=== PATIENT | female | born 1945 | race Hispanic/Latino ===

== ENCOUNTER 2017-02-06 07:14 | Day surgery (SDC) | payer MEDICARE ==
[~2017-02-06 07:14] MED LIST: TETRACAINE 0.5% OS PRN
[2017-02-06] MEDS: MYDRIACYL OS SCH ×3 (07:55→08:05)
[2017-02-06] MEDS: VIGAMOX OS SCH ×3 (07:55→08:05)
[2017-02-06] MEDS: AK-Dilate OS SCH ×3 (07:55→08:05)
--- NOTE | 2017-02-06 07:55 | Anesthesia Consultation ---
Anesthesia Consult and Med Hx Date of service: 02/06/17 - Airway Anesthetic Teeth Evaluation: Dentures, Edentulous ROM Head & Neck: Adequate Mental/Hyoid Distance: Adequate Mallampati Class: Class II Intubation Access Assessment: Probably Good - Pulmonary Exam CTA: Yes - Cardiac Exam Cardiac Exam: RRR - Pre-Operative Health Status ASA Pre-Surgery Classification: ASA3 Proposed Anesthetic Plan: MAC - Pulmonary Hx Smoking: No Hx Asthma: Yes (took symbicort this morning) Hx Sleep Apnea: No - Cardiovascular System Hx Hypertension: Yes (FOR 15 YRS) Hx Coronary Artery Disease: Yes Hx Heart Attack/AMI: Yes (IN 2001) Hx Percutaneous Transluminal Coronary Angioplasty (PTCA): Yes (STENT X 1) - Central Nervous System Hx Seizures: No CVA: No Hx Back Pain: Yes (COMPRESSED VERTEBRAE IN THORACIC AND LUMBAR SPINE) Hx Psychiatric Problems: No - Endocrine Hx Renal Disease: No Hx Cirrhosis: No Hx Liver Disease: No (HEPATITIS A CHILD) Hx Insulin Dependent Diabetes: No Hx Hyperthyroidism: No - Other Systems Hx Cancer: No Hx Obesity: Yes (BMI 31.2)
[2017-02-06] MEDS ORDERED: MYDRIACYL ONE (08:00)
--- NOTE | 2017-02-06 08:05 | Anesthesia Day of Surgery ---
Anesthesia Day of Surgery - Day of Surgery Patient Examined: Yes Patient H&P Reviewed: Yes Patient is NPO: Yes
[2017-02-06] MEDS ORDERED: VERSED ONE (08:28)
[2017-02-06] MEDS ORDERED: SUBLIMAZE ONE (08:28)
[2017-02-06] MEDS ORDERED: WATER FOR IRRIG STERILE IR ONE (09:16)
--- NOTE | 2017-02-06 09:24 | Operative Report ---
Operative Report Operative Report: PATIENT'S NAME: DATE OF : DATE OF SURGERY: 02/06/2017 PREOPERATIVE DIAGNOSIS: Cataract left eye POSTOPERATIVE DIAGNOSIS: Same OPERATIVE PROCEDURE: Phacoemulsification with intraocular lens implantation, left eye SURGEON: Sunni Camarena M.D. [employer]IC [employer]ER[employer] SURGEON: Zion Lens: AO60 23.5D ANESTHESIA: Monitored anesthesia care in combination with topical and intracameral anesthesia because of the established specific risk of reflux, arrhythmias, or anxiety attacks associated with ocular manipulation, as well as the difficulty of the enterprise resource planner to manage such potentially catastrophic events while simultaneously attempting to complete the surgical procedure and was deemed necessary for the patient's safety to have an Market Research Interviewer present during the procedure whenever possible. An Market Research Interviewer was utilized to regulate the intravenous sedation of the patient so the patient was cooperative yet not asleep in order for the patient to successfully maintain fixation of the eye on the operating light of the microscope. COMPLICATIONS: No surgical complications No blood loss. ALLERGIES: Phenytoin PROGNOSIS: Excellent INDICATIONS FOR SURGERY: The patient is undergoing surgery in the hopes of eliminating or improving these visual difficulties. PROCEDURE: After arriving at the surgery center, the patient was given topical anesthetic and dilating drops, as noted in the record. The patient was then taken into the operating room and given more anesthetic drops. The eyelids , lashes, and lid margins were scrubbed with Betadine solution, and the patient was draped. The Nurse Market Research Interviewer administered IV sedation and monitored the patient during the procedure. The eye was then fixated with a 0.12, and a stab incision was made in the peripheral clear cornea into the anterior chamber. This was made on my left side. Viscoelastic was next used to fill the anterior chamber. The eye was once again fixated with the 0.12 forceps and a keratome was used make an incision in clear cornea peripherally on my right hand side temporally. The capsule forceps were used to open the central anterior capsule and then make a continuous round capsulotomy. Hydrodissection was carried out utilizing a cannula and balanced salt solution to delineate the cortical material from the capsule and the nucleus from the cortical material. The phaco tip was introduced into the eye and used to remove the anterior cortical material in the area of the capsulotomy. Then the phaco tip was buried into the nucleus, and a chopping instrument was introduced into the eye and used to provide countertraction in the nucleus between this instrument and the phaco tip fracturing the nucleus. This procedure was repeated multiple times, providing multiple small segments of the lens, and then the phaco tip was used to remove each of these segments. An I/A tip was then used to remove the remaining cortex. The anterior chamber was refilled with viscoelastic. An one-piece, acrylic intraocular lens was then placed into an inserting cartridge. The tip of the inserting cartridge was introduced into the keratome incision and into the anterior chamber. The implant was gently advanced through the cartridge and into the eye, where it unfolded, and both haptics were placed in the capsular bag, where it centered nicely and appeared to be well fixated. After placement of the intraocular lens, the I~and~A handpiece was placed back into the eye and used to remove the viscoelastic, including viscoelastic that was behind the optic of the intraocular lens. The anterior chamber was then filled with balanced salt solution, and hydration of the wound was used to cause swelling of the wound and more appropriate watertight closure. When the wound was found to be firm, the patient was asked to comment on how bright the light was. If there was no light perception at all or if the light was substantially dimmer than during the rest of the surgery, the amount of fluid in the eye was decompressed to lower the intraocular pressure until the patient could see the bright light again. This was done to avoid any damage or decreased blood flow to the optic nerve. MEDICATIONS APPLIED AT END OF SURGERY: One drop of Pred Forte and Vigamox The patient was given a shield to wear at night and was instructed not to rub or push on the eye. DISCHARGE SUMMARY: The patient was released in stable condition. The patient and those with the patient were given a written sheet of postoperative instructions and counseling on any abnormal laboratory studies. The patient is to see us tomorrow for follow-up in the office and is to call immediately for any difficulties. Sunni Camarena M.D. Date
--- NOTE | 2017-02-06 09:26 | Short Stay Summary ---
Short Stay Documentation Date of service: 02/06/17 - History H&P: obtained from office - Allergies and Medications Current Medications: Allergies phenytoin sodium [From Dilantin] Allergy (Verified 02/06/17 08:20) Unknown phenytoin sodium extended [From Dilantin] Allergy (Verified 02/06/17 08:21) Unknown PT STATES SHE HAS NEVER TAKEN THIS MED BUT HER FATHER HAD A FATAL REACTION TO IT Home Medications Medication Instructions Recorded Confirmed Last Taken Type Aspirin [Aspirin TAB] 325 mg PO QDAY 01/30/17 01/30/17 02/05/17 History Budesoni/Formotero 160-4.5(Nf) 2 puff IH BID 01/30/17 01/30/17 02/06/17 04:00 History [Symbicort 160-4.5 (Nf)] Cyanocobalamin (Vitamin B-12) 1,000 mcg PO QDAY 01/30/17 01/30/17 02/05/17 History [B-12] Latanoprost 0.005% [Xalatan 0.005%] 1 drop OP QPM 01/30/17 01/30/17 02/05/17 History Losartan [Cozaar] 25 mg PO QDAY 01/30/17 01/30/17 02/05/17 History Oxybutynin [Ditropan] 5 mg PO QDAY 01/30/17 01/30/17 02/05/17 History Temazepam [Restoril] 15 mg PO QHS PRN 01/30/17 01/30/17 02/05/17 History Ubidecarenone [Coq-10] 100 mg PO QDAY 01/30/17 01/30/17 02/05/17 History Verapamil HCl [Verapamil] 80 mg PO QDAY 01/30/17 01/30/17 02/06/17 04:00 History amLODIPine [Norvasc] 10 mg PO DAILY 01/30/17 01/30/17 02/05/17 History Active Medications Moxifloxacin HCl (Vigamox) 1 drops OS Q5MIN RO[place] Stop: 02/08/17 06:01 Last Admin: 02/06/17 08:05 Dose: 1 drops Phenylephrine HCl (Ak-Dilate) 1 drops OS Q5MIN RO[place] Stop: 02/08/17 06:01 Last Admin: 02/06/17 08:05 Dose: 1 drops Prednisolone Acetate (Pred Forte 1%) 1 drops OS QID [place] Tetracaine HCl (Tetracaine 0.5%) 1 drops OS Q5M PRN PRN Reason: Analgesia Last Admin: 02/06/17 07:55 Dose: 1 drops Tropicamide (Mydriacyl) 1 drops OS Q5MIN ROBS[place] Stop: 02/08/17 06:01 Last Admin: 02/06/17 08:05 Dose: 1 drops - Brief post op/procedure progress note Date of procedure: 02/06/17 Pre-op diagnosis: cataract left eye Post-op diagnosis: same Procedure: Phacoemulsification with intraocular lens insertion left eye Anesthesia: MAC Surgeon: ELLIE BAXTER Estimated blood loss: none Pathology: none Condition: stable - Disposition Condition at discharge: Good Disposition: DISCHARGED TO HOME OR SELFCARE - Discharge Diagnoses (1) Cataract Status: Resolved Short Stay Discharge Plan Follow up with: LUCRECIA MACHADO [Other] - 7 Days
[2017-02-06] MEDS ORDERED: PRED FORTE 1% OS SCH (10:00)
[2017-02-06 10:20] VITALS: BP 157/70
--- NOTE | 2017-02-06 13:53 | Post Anesthesia Evaluation ---
- Post Anesthesia Evaluation Patient Participated: Yes Airway Patent: Yes Stable Respiratory Function: Yes Nausea/Vomiting: No Temp > 96.8F: Yes Pain Manageable: Yes Adequeate Hydration: Yes Anesthesia Complications: No Block Receding Appropriately: Not Applicable Patient on Ventilator: No
--- NOTE | 2017-02-06 21:47 | Admit Criteria Form ---
Admission Criteria Documentation: AMBULATORY SURGERY EXCEPTION CRITERIA Ambulatory Surgery Exception Criteria ( Place 'X' for any and all applicable criteria): Surgery or procedure performed on ambulatory basis may require inpatient stay for[A] ANY ONE of the following(1)(2)(3)(4)(5)(6)(7)(8)(9): [X] I. A preoperative situation, condition, or finding that warrants inpatient stay as indicated by ANY ONE of the following: [] a) Inpatient care needed because of severity of a disease or condition rather than the surgery (eg, severe cardiac or respiratory disease, severe infection) (15) (16 ) (17) (18) [] b) Emergent procedure (eg, angioplasty for acute ischemia)(19) [] c) Complex surgical approach or situation as indicated by ANY ONE of the following(3): [] i) Open approach needed instead of usual endoscopic, transcatheter, or other less invasive procedure [] ii) Difficult approach because of previous operation [] iii) Airway monitoring required after open neck procedures(20)(21) [] iv) Large mass requiring unusually extensive dissection [] v) Additional complicating feature requiring inpatient care (eg, drain management)(22(23): [X] d) Major surgery in a pt with high anesthetic risk as indicated by ANY ONE of the following (2)(3)(5)(7)(8): [X] i) ASA risk class III or higher (severe systemic disease impairing function) [D] [] ii) Advanced age (eg, older than 85 years)(14)(24) [] iii) Symptomatic heart failure(25) [] iv) Symptomatic asthma or COPD(8)(21) [] v) Morbid obesity with hemodynamic or respiratory problems(20)( 21)(26)(27) [] vi) Obstructive sleep apnea(20)(21) [] vii) Former premature infants who are younger than 60 weeks [] viii) High risk for severe postoperative abnormalities (eg, severe postoperative hypocalcemia after parathyroidectomy for severe hyperparathyroidism)(27)( 28) [] ix) Unstable angina(25) [] e) Drug-related risk requiring inpatient stay as indicated by ANY ONE of the following(5)(10)(14)(32)(33) [] i) Procedure requires discontinuing drugs or other therapy (eg , antiarrhythmic medication, antiseizure medication), which necessitates inpatient observation or treatment.(18)(31) [] ii) Major surgery and high risk drug use as indicated by ANY ONE of the following: [] 1) Active abuse of cocaine or similar drug [] 2) Monoamine oxidase inhibitor use [] 3) Other drug identified as posing risk [] f) Inadequate outpatient care situation as indicated by ANY ONE of the following(5)(10)(14)(32)(33) [] i) Patient lives remote from medical facility and procedure has urgent complication potential, and temporary nearby residence cannot be arranged [] ii) Patient will have postprocedure incapacitation and inadequate assistance at home, or alternative level of care cannot be arranged. [] iii) Patient will have long general anesthesia or procedure side effect resolution time, and competent person to stay with patient on first postoperative night at home or alternative level of care cannot be arranged. []iv) Other inadequate outpatient situation that cannot be handled by other means [] II. A perioperative event, condition, or finding that warrants inpatient stay as indicated by ANY ONE of the following (1)(2)(3): [] a) Inadequate physiologic recovery: cardiovascular, respiratory, or hemodynamic status not normal or near preoperative baseline(18) [] b) Hemodynamic instability [] c) Patient not alert with near normal or baseline mental status [] d) Temperature not normal or as expected and not appropriate for outpatient treatment of condition [] e) Ambulatory or appropriate activity level status not yet achieved post procedure [E](34)(35)(36) [] f) Operative site not appropriate (eg, unexpected or excessive drainage or bleeding) [] g) Postoperative effects not resolved or adequately managed (eg, significant pain or vomiting not appropriate for outpatient or next level of care)(10)(12) [] h) Complicating features requiring inpatient care as indicated by ANY ONE of the following(37): [] i) Severe complications of procedure (eg, bowel injury, airway compromise, vascular injury,severe hemorrhage) [] ii) Extensive (eg, dissection far beyond usual scope of procedure ) or prolonged (eg, 120 minutes beyond usual) surgery needed requiring inpatient postoperative care [] iii) Conversion to an open or complex procedure that requires inpatient care (eg, open vs laparoscopic cholecystectomy, abdominal vs vaginal hysterectomy)(38) [] iv) Comorbid condition or test result identified during or post procedure that requires inpatient care (7) [] v) Malignant hyperthermia(30) [] vi) Other complicating feature requiring inpatient care(22)(23) Inpatient stay may be needed until ALL of the following are present (1)(2)(3)(4) (5)(6)(10)(14)(33)(40): []a) Physiologic recovery: cardiovascular, respiratory, and hemodynamic status normal or near preoperative baseline []b) Hemodynamic stability []c) Patient alert, with near normal or baseline mental status []d) Temperature appropriate: patient afebrile or temperature appropriate for outpt treatment of condition []e) Activity level appropriate: ambulatory or appropriate activity level post procedure []f) Operative site appropriate as indicated by ALL of the following: []i) Site dry or with expected drainage []ii) Any blood noted is as expected for procedure. []g) Postoperative effects resolved or managed as indicated by ALL of the following: []i) Pain management appropriate for outpatient (or next level of) care(10) []ii) Minimal nausea and vomiting: if present, successfully treated with oral medication(12) []iii) Headache, dizziness, or drowsiness (if present) are mild. []h) Voiding status acceptable as indicated by ANY ONE of the following: []i) Voiding spontaneously []ii) No voiding but instructions given for follow-up in 6 to 8 hours []iii) Urinary catheter in place, and instructions given for follow-up []i) Complicating features requiring inpatient care manageable at a lower level of care(37) []j) Comorbid conditions manageable at a lower level of care(37) The original [facility] content created by [facility] has been revised. The portions of the content which have been revised are identified through the use of italic text or in bold, and [facility] [employer] has neither reviewed nor approved the modified material. All other unmodified content is copyright [facility]. Please see references footnoted in the original [facility] edition 2016 Admission Criteria Met: Yes
== END 2017-02-06 10:15 | disposition home or self-care (01) ==
LOC: OR 07:14
DX: H26.9 Unspecified cataract (principal); I10 Essential (primary) hypertension; J45.909 Unspecified asthma, uncomplicated; I25.10 Atherosclerotic heart disease of native coronary artery without angina pectoris; I25.2 Old myocardial infarction; E66.9 Obesity, unspecified; Z68.31 Body mass index [BMI] 31.0-31.9, adult; Z95.5 Presence of coronary angioplasty implant and graft
CPT/HCPCS: 66984; J2250; J3010; V2632

== ENCOUNTER 2017-02-13 05:55 | Day surgery (SDC) | payer MEDICARE ==
[~2017-02-13 05:55] MED LIST changes: +BSS ONE; +NACL 0.9% IR ONE; +TETRACAINE 0.5% ONE; -TETRACAINE 0.5% OS PRN
[2017-02-13] MEDS ORDERED: TETRACAINE 0.5% OD PRN (06:00)
[2017-02-13] MEDS ORDERED: NACL BACTERIOSTATIC INFILTRATI ONE (06:14)
[2017-02-13] MEDS: MYDRIACYL OD SCH ×3 (06:38→07:12)
[2017-02-13] MEDS: AK-Dilate OD SCH ×3 (06:38→07:12)
[2017-02-13] MEDS: VIGAMOX OD SCH ×3 (06:39→07:12)
[2017-02-13] MEDS ORDERED: VERSED ONE (06:59)
[2017-02-13] MEDS ORDERED: SUBLIMAZE ONE (06:59)
--- NOTE | 2017-02-13 07:00 | Anesthesia Day of Surgery ---
Anesthesia Day of Surgery - Day of Surgery Patient Examined: Yes Patient H&P Reviewed: Yes Patient is NPO: Yes Cardiac Clearance: Yes (cardiac note)
--- NOTE | 2017-02-13 07:02 | Anesthesia Consultation ---
Anesthesia Consult and Med Hx - Airway Anesthetic Teeth Evaluation: Dentures ROM Head & Neck: Adequate Mental/Hyoid Distance: Adequate Mallampati Class: Class II Intubation Access Assessment: Probably Good - Pulmonary Exam CTA: Yes - Cardiac Exam Cardiac Exam: RRR - Pre-Operative Health Status ASA Pre-Surgery Classification: ASA3 Proposed Anesthetic Plan: MAC - Pulmonary Hx Smoking: Yes Hx Asthma: Yes COPD: Yes - Cardiovascular System Hx Hypertension: Yes (x 15 yrs) Hx Coronary Artery Disease: Yes Hx Heart Attack/AMI: Yes (2001, EF 60%) Hx Percutaneous Transluminal Coronary Angioplasty (PTCA): Yes (STENT X 1) - Central Nervous System Hx Seizures: No CVA: No Hx Back Pain: Yes (Compressed vertebrae in thoracic & lumbar spine) Hx Psychiatric Problems: No - Endocrine Hx Renal Disease: No Hx Cirrhosis: No Hx Liver Disease: No (HEPATITIS A CHILD) Hx Insulin Dependent Diabetes: No Hx Hyperthyroidism: No - Other Systems Hx Cancer: No Hx Obesity: Yes (BMI 31.2) - Additional Comments Anesthesia Medical History Comments: NPO after MN. No prior anesthesia complications
[2017-02-13] MEDS ORDERED: PRED FORTE 1% ONE (07:57)
[2017-02-13] MEDS ORDERED: NACL 0.9% IR ONE (08:06)
--- NOTE | 2017-02-13 08:20 | Operative Report ---
Operative Report Operative Report: PATIENT'S NAME: DATE OF : DATE OF SURGERY: 02/13/2017 PREOPERATIVE DIAGNOSIS: Cataract right eye POSTOPERATIVE DIAGNOSIS: Same OPERATIVE PROCEDURE: Phacoemulsification with intraocular lens implantation, right eye SURGEON: Sunni Camarena M.D. FLIGHT DISPATCHER SURGEON: Zion Lens: AO60 23.0 D ANESTHESIA: Monitored anesthesia care in combination with topical and intracameral anesthesia because of the established specific risk of reflux, arrhythmias, or anxiety attacks associated with ocular manipulation, as well as the difficulty of the solar photovoltaic designer to manage such potentially catastrophic events while simultaneously attempting to complete the surgical procedure and was deemed necessary for the patient's safety to have an Broadcast Checker present during the procedure whenever possible. An Broadcast Checker was utilized to regulate the intravenous sedation of the patient so the patient was cooperative yet not asleep in order for the patient to successfully maintain fixation of the eye on the operating light of the microscope. COMPLICATIONS: No surgical complications No blood loss. ALLERGIES: Phenytoin PROGNOSIS: Excellent INDICATIONS FOR SURGERY: The patient is undergoing surgery in the hopes of eliminating or improving these visual difficulties. PROCEDURE: After arriving at the surgery center, the patient was given topical anesthetic and dilating drops, as noted in the record. The patient was then taken into the operating room and given more anesthetic drops. The eyelids , lashes, and lid margins were scrubbed with Betadine solution, and the patient was draped. The Nurse Broadcast Checker administered IV sedation and monitored the patient during the procedure. The eye was then fixated with a 0.12, and a stab incision was made in the peripheral clear cornea into the anterior chamber. This was made on my left side. Viscoelastic was next used to fill the anterior chamber. The eye was once again fixated with the 0.12 forceps and a keratome was used make an incision in clear cornea peripherally on my right hand side temporally. The capsule forceps were used to open the central anterior capsule and then make a continuous round capsulotomy. Hydrodissection was carried out utilizing a cannula and balanced salt solution to delineate the cortical material from the capsule and the nucleus from the cortical material. The phaco tip was introduced into the eye and used to remove the anterior cortical material in the area of the capsulotomy. Then the phaco tip was buried into the nucleus, and a chopping instrument was introduced into the eye and used to provide countertraction in the nucleus between this instrument and the phaco tip fracturing the nucleus. This procedure was repeated multiple times, providing multiple small segments of the lens, and then the phaco tip was used to remove each of these segments. An I/A tip was then used to remove the remaining cortex. The anterior chamber was refilled with viscoelastic. An one-piece, acrylic intraocular lens was then placed into an inserting cartridge. The tip of the inserting cartridge was introduced into the keratome incision and into the anterior chamber. The implant was gently advanced through the cartridge and into the eye, where it unfolded, and both haptics were placed in the capsular bag, where it centered nicely and appeared to be well fixated. After placement of the intraocular lens, the I~and~A handpiece was placed back into the eye and used to remove the viscoelastic, including viscoelastic that was behind the optic of the intraocular lens. The anterior chamber was then filled with balanced salt solution, and hydration of the wound was used to cause swelling of the wound and more appropriate watertight closure. When the wound was found to be firm, the patient was asked to comment on how bright the light was. If there was no light perception at all or if the light was substantially dimmer than during the rest of the surgery, the amount of fluid in the eye was decompressed to lower the intraocular pressure until the patient could see the bright light again. This was done to avoid any damage or decreased blood flow to the optic nerve. MEDICATIONS APPLIED AT END OF SURGERY: One drop of Pred Forte and Vigamox The patient was given a shield to wear at night and was instructed not to rub or push on the eye. DISCHARGE SUMMARY: The patient was released in stable condition. The patient and those with the patient were given a written sheet of postoperative instructions and counseling on any abnormal laboratory studies. The patient is to see us tomorrow for follow-up in the office and is to call immediately for any difficulties. Sunni Camarena M.D. Date
--- NOTE | 2017-02-13 08:21 | Short Stay Summary ---
Short Stay Documentation Date of service: 02/13/17 - History H&P: obtained from office - Allergies and Medications Current Medications: Allergies phenytoin sodium [From Dilantin] Allergy (Verified 02/12/17 09:22) Unknown phenytoin sodium extended [From Dilantin] Allergy (Verified 02/12/17 09:22) Unknown PT STATES SHE HAS NEVER TAKEN THIS MED BUT HER FATHER HAD A FATAL REACTION TO IT Home Medications Medication Instructions Recorded Confirmed Last Taken Type Aspirin [Aspirin TAB] 325 mg PO QDAY 01/30/17 02/12/17 02/12/17 History Budesoni/Formotero 160-4.5(Nf) 2 puff IH BID 01/30/17 02/12/17 02/12/17 History [Symbicort 160-4.5 (Nf)] Cyanocobalamin (Vitamin B-12) 1,000 mcg PO QDAY 01/30/17 02/12/17 02/12/17 History [B-12] Latanoprost 0.005% [Xalatan 0.005%] 1 drop OP QPM 01/30/17 02/12/17 02/12/17 History Losartan [Cozaar] 25 mg PO QDAY 01/30/17 02/12/17 02/12/17 History Oxybutynin [Ditropan] 5 mg PO QDAY 01/30/17 02/12/17 02/12/17 History Temazepam [Restoril] 15 mg PO QHS PRN 01/30/17 02/12/17 02/12/17 History Ubidecarenone [Coq-10] 100 mg PO QDAY 01/30/17 02/13/17 02/12/17 History Verapamil HCl [Verapamil] 80 mg PO QDAY 01/30/17 02/13/17 02/13/17 04:00 History amLODIPine [Norvasc] 10 mg PO DAILY 01/30/17 02/13/17 02/12/17 History Moxifloxacin HCl [Vigamox 0.5%] 1 drop OP QID 02/13/17 02/13/17 02/12/17 History Nepafenac [Ilevro 0.3%] 1 drop OP QDAY 02/13/17 02/13/17 02/12/17 History prednisoLONE ACETATE [Pred Forte] 1 drop OS QID 02/13/17 02/13/17 02/12/17 History Active Medications Moxifloxacin HCl (Vigamox) 1 drops OD Q5MIN [facility] Stop: 02/15/17 06:01 Last Admin: 02/13/17 07:12 Dose: 1 drops Phenylephrine HCl (Ak-Dilate) 1 drops OD Q5MIN [facility] Stop: 02/15/17 06:01 Last Admin: 02/13/17 07:12 Dose: 1 drops Prednisolone Acetate (Pred Forte 1%) 1 drops OD QID [facility] Tetracaine HCl (Tetracaine 0.5%) 1 drops OD Q5MIN PRN PRN Reason: Analgesia Last Admin: 02/13/17 06:38 Dose: 1 drops Tropicamide (Mydriacyl) 1 drops OD Q5MIN [facility] Stop: 02/15/17 06:01 Last Admin: 02/13/17 07:12 Dose: 1 drops - Brief post op/procedure progress note Date of procedure: 02/13/17 Pre-op diagnosis: CATARACT RIGHT EYE Post-op diagnosis: same Procedure: Phacoemulsification with intraocular lens insertion right eye Anesthesia: MAC Surgeon: ELLIE BAXTER Estimated blood loss: none Pathology: none Condition: stable - Disposition Condition at discharge: Good Disposition: DISCHARGED TO HOME OR SELFCARE - Discharge Diagnoses (1) Cataract Status: Resolved
[2017-02-13] MEDS ORDERED: PRED FORTE 1% OD SCH (09:00)
[2017-02-13 09:16] VITALS: BP 160/80
--- NOTE | 2017-02-14 01:46 | Admit Criteria Form ---
Admission Criteria Documentation: AMBULATORY SURGERY EXCEPTION CRITERIA Ambulatory Surgery Exception Criteria ( Place 'X' for any and all applicable criteria): Surgery or procedure performed on ambulatory basis may require inpatient stay for[A] ANY ONE of the following(1)(2)(3)(4)(5)(6)(7)(8)(9): [X] I. A preoperative situation, condition, or finding that warrants inpatient stay as indicated by ANY ONE of the following: [] a) Inpatient care needed because of severity of a disease or condition rather than the surgery (eg, severe cardiac or respiratory disease, severe infection) (15) (16 ) (17) (18) [] b) Emergent procedure (eg, angioplasty for acute ischemia)(19) [] c) Complex surgical approach or situation as indicated by ANY ONE of the following(3): [] i) Open approach needed instead of usual endoscopic, transcatheter, or other less invasive procedure [] ii) Difficult approach because of previous operation [] iii) Airway monitoring required after open neck procedures(20)(21) [] iv) Large mass requiring unusually extensive dissection [] v) Additional complicating feature requiring inpatient care (eg, drain management)(22(23): [X] d) Major surgery in a pt with high anesthetic risk as indicated by ANY ONE of the following (2)(3)(5)(7)(8): [X] i) ASA risk class III or higher (severe systemic disease impairing function) [D] [] ii) Advanced age (eg, older than 85 years)(14)(24) [] iii) Symptomatic heart failure(25) [] iv) Symptomatic asthma or COPD(8)(21) [] v) Morbid obesity with hemodynamic or respiratory problems(20)( 21)(26)(27) [] vi) Obstructive sleep apnea(20)(21) [] vii) Former premature infants who are younger than 60 weeks [] viii) High risk for severe postoperative abnormalities (eg, severe postoperative hypocalcemia after parathyroidectomy for severe hyperparathyroidism)(27)( 28) [] ix) Unstable angina(25) [] e) Drug-related risk requiring inpatient stay as indicated by ANY ONE of the following(5)(10)(14)(32)(33) [] i) Procedure requires discontinuing drugs or other therapy (eg , antiarrhythmic medication, antiseizure medication), which necessitates inpatient observation or treatment.(18)(31) [] ii) Major surgery and high risk drug use as indicated by ANY ONE of the following: [] 1) Active abuse of cocaine or similar drug [] 2) Monoamine oxidase inhibitor use [] 3) Other drug identified as posing risk [] f) Inadequate outpatient care situation as indicated by ANY ONE of the following(5)(10)(14)(32)(33) [] i) Patient lives remote from medical facility and procedure has urgent complication potential, and temporary nearby residence cannot be arranged [] ii) Patient will have postprocedure incapacitation and inadequate assistance at home, or alternative level of care cannot be arranged. [] iii) Patient will have long general anesthesia or procedure side effect resolution time, and competent person to stay with patient on first postoperative night at home or alternative level of care cannot be arranged. []iv) Other inadequate outpatient situation that cannot be handled by other means [] II. A perioperative event, condition, or finding that warrants inpatient stay as indicated by ANY ONE of the following (1)(2)(3): [] a) Inadequate physiologic recovery: cardiovascular, respiratory, or hemodynamic status not normal or near preoperative baseline(18) [] b) Hemodynamic instability [] c) Patient not alert with near normal or baseline mental status [] d) Temperature not normal or as expected and not appropriate for outpatient treatment of condition [] e) Ambulatory or appropriate activity level status not yet achieved post procedure [E](34)(35)(36) [] f) Operative site not appropriate (eg, unexpected or excessive drainage or bleeding) [] g) Postoperative effects not resolved or adequately managed (eg, significant pain or vomiting not appropriate for outpatient or next level of care)(10)(12) [] h) Complicating features requiring inpatient care as indicated by ANY ONE of the following(37): [] i) Severe complications of procedure (eg, bowel injury, airway compromise, vascular injury,severe hemorrhage) [] ii) Extensive (eg, dissection far beyond usual scope of procedure ) or prolonged (eg, 120 minutes beyond usual) surgery needed requiring inpatient postoperative care [] iii) Conversion to an open or complex procedure that requires inpatient care (eg, open vs laparoscopic cholecystectomy, abdominal vs vaginal hysterectomy)(38) [] iv) Comorbid condition or test result identified during or post procedure that requires inpatient care (7) [] v) Malignant hyperthermia(30) [] vi) Other complicating feature requiring inpatient care(22)(23) Inpatient stay may be needed until ALL of the following are present (1)(2)(3)(4) (5)(6)(10)(14)(33)(40): []a) Physiologic recovery: cardiovascular, respiratory, and hemodynamic status normal or near preoperative baseline []b) Hemodynamic stability []c) Patient alert, with near normal or baseline mental status []d) Temperature appropriate: patient afebrile or temperature appropriate for outpt treatment of condition []e) Activity level appropriate: ambulatory or appropriate activity level post procedure []f) Operative site appropriate as indicated by ALL of the following: []i) Site dry or with expected drainage []ii) Any blood noted is as expected for procedure. []g) Postoperative effects resolved or managed as indicated by ALL of the following: []i) Pain management appropriate for outpatient (or next level of) care(10) []ii) Minimal nausea and vomiting: if present, successfully treated with oral medication(12) []iii) Headache, dizziness, or drowsiness (if present) are mild. []h) Voiding status acceptable as indicated by ANY ONE of the following: []i) Voiding spontaneously []ii) No voiding but instructions given for follow-up in 6 to 8 hours []iii) Urinary catheter in place, and instructions given for follow-up []i) Complicating features requiring inpatient care manageable at a lower level of care(37) []j) Comorbid conditions manageable at a lower level of care(37) The original [employer] content created by [employer] has been revised. The portions of the content which have been revised are identified through the use of italic text or in bold, and [facility] [employer] has neither reviewed nor approved the modified material. All other unmodified content is copyright [employer]. Please see references footnoted in the original [employer] edition 2016 Admission Criteria Met: Yes
== END 2017-02-13 09:00 | disposition home or self-care (01) ==
LOC: OR 05:55
DX: H26.9 Unspecified cataract (principal); I25.2 Old myocardial infarction; I10 Essential (primary) hypertension; J45.909 Unspecified asthma, uncomplicated; J44.9 Chronic obstructive pulmonary disease, unspecified; I25.10 Atherosclerotic heart disease of native coronary artery without angina pectoris; E66.9 Obesity, unspecified; Z68.31 Body mass index [BMI] 31.0-31.9, adult
CPT/HCPCS: 66984; J2250; J3010; V2630; V2632